=== PATIENT | female | born 1955 | race Caucasian/White ===

== ENCOUNTER → 2016-07-10 | Day surgery (SDC) | payer BC ==
--- NOTE | 2016-07-09 08:53 | MH ---
cc: JAROD JARRELL DATE OF ADMISSION 07/10/2016 REASON FOR ADMISSION This is a 60-year-old female with chronic right-sided otitis and a lesion on the drum on the right side for removal of the lesion and tympanoplasty PAST MEDICAL HISTORY Unremarkable PAST SURGICAL HISTORY Unremarkable REVIEW OF SYSTEMS, FAMILY HISTORY AND SOCIAL HISTORY Unremarkable PHYSICAL EXAMINATION A well-appearing patient in no acute distress noted. HEENT: Exam reveals a lesion on the drum likely an inclusion cyst on the right side approximately 4 mm anterior, superior quadrant. Nose WNL. Oral cavity clear. NECK: Soft and supple, no masses. LUNGS: Clear. HEART: Regular rate and rhythm. ABDOMEN: Soft and nontender. EXTREMITIES: Without cyanosis, clubbing or edema. NEUROLOGIC: Alert, oriented, nonfocal neurologic exam. IMPRESSION The patient with chronic lesion on drum for removal and tympanoplasty. Instructed method of surgery and possible complication include anesthetic complications, cardiac difficulty, pulmonary difficulty, stroke, or even . Surgical complications of persistent perforation, increased sense of fullness, pressure and hearing loss. The patient appeared to agree, accept and understand the above-mentioned risks and benefits. In addition, no guarantees or warranties regarding outcome were given. We will therefore proceed with surgery. MD JIMENA Rivas/JAMES /8:00 AM /8:49 AM
[~2016-07-10] VITALS: Ht 172.7 cm; Wt 81.3 kg
[~2016-07-10] MED LIST: ACETAMINOPHEN/HYDROcodone 325 MG/7.5 MG TAB ONE; CHLORHEXIDINE GLUCONATE 2 % 1 PACK (2 CLOTHS) TOPICAL PRN; DEXAMETHASONE SOD PHOS 4 MG/ML VIAL ONE; FAMOTIDINE 20 MG/2 ML VIAL ONE; GABA300C5 PO; INSULIN HUMAN REGULAR 1,000 UNITS/10 ML VIAL SQ PRN; LACTATED RINGER'S 1000 ML IV PRN; LISI2.5T3 PO; MELO7.5T4 PO; METOPROLOL TARTRATE 25 MG TAB PO PRN; MIDAZOLAM HCL 2 MG/2 ML VIAL ONE; OFLOXACIN 0.3% OPTH SOLN 5 ML BTL RIGHT EAR ONE; OMEG100037 PO; POVIDONE IODINE 5% (ANTISEPSIS KIT) 4 APPLICATIONS EACH NARE PRN; PROPOFOL 200 MG/20 ML AMP IV ONE; SODIUM CHLORID 0.9% 500 ML IV PRN; VITA100021 SL
[2016-07-10 06:35] VITALS: BP 161/97; PULSE 62; RESP 20; TEMP 97.9; O2SAT 98
[2016-07-10 09:01] VITALS: BP 136/78; PULSE 58; RESP 16; TEMP 97.1; O2SAT 100
--- NOTE | 2016-07-12 18:07 | MP ---
cc: JAROD JARRELL DATE OF SURGERY 07/10/16 PREOPERATIVE DIAGNOSIS Chronic otitis media PROCEDURE Myringotomy and tube placement right side ANESTHESIA General anesthesia ESTIMATED BLOOD LOSS Minimal. COMPLICATIONS None SURGEON Dr. Mario Jarrell PROCEDURE IN DETAIL Patient prepped, draped usual fashion under microscopic visualization the scab from the anterior superior quadrant eardrum, the underlying drum appeared to be unremarkable. It was thought that there was a lesion underneath this, but there was no lesion. Because of the patient's symptoms of persistent fullness and pressure, myringotomy was performed radially in this quadrant and then grommet tube placed in good position along with O blocks under microscopic visualization. The patient tolerated procedure well. MD JIMENA Rivas/ /8:03 AM /5:59 PM
--- NOTE | 2016-07-14 08:17 | EKG ---
Date Performed: 07/10/2016 Time Performed: 06:11:32 PTAGE: 61 years EKG: Sinus rhythm MODERATE INTRAVENTRICULAR CONDUCTION DELAY BORDERLINE ECG NO PREVIOUS TRACING DOCTOR: Theo Harrison Interpretating Date/Time 07/14/2016 08:15:23
== END | disposition home or self-care (01) ==
LOC: HSDC 05:33
PROVIDERS: ATTEND Specialist
DX: H66.91 Otitis media, unspecified, right ear (principal); I10 Essential (primary) hypertension
CPT/HCPCS: 00126; 69436; 93005; J1100; J2250; J3010; J7120